=== PATIENT | female | born 1970 | race Caucasian/White ===

== ENCOUNTER 2020-09-30 16:01 | Outpatient (REF) | payer BC, SELFPAY ==
[2020-10-03 13:37] LABS: Immunoglobulin A 217 mg/dL (47-310)
[2020-10-03 22:37] LABS: Transglutaminase Ab IgG 1 U/mL; Transglutaminase IgA 1 U/mL
[2020-10-04 13:32] LABS: Gliadin Deamidated IgA Ab 4 Units; Gliadin Deamidated IgG Ab 2 Units
[2020-10-07 17:47] LABS: Endomysial IgA Antibody Negative (Negative)
== END 2020-09-30 16:02 | disposition home or self-care (01) ==
LOC: HO.LAB 16:01
PROVIDERS: PCP Internal Medicine; Visit Provider Internal Medicine
DX: D50.9 Iron deficiency anemia, unspecified (principal)
CPT/HCPCS: 36415; 82784; 83516; 86255; 86256

== ENCOUNTER 2020-10-01 07:24 | Outpatient (REF) | payer BC, SELFPAY | END 2020-10-01 07:25 | disposition home or self-care (01) | LOC: HO.LAB 07:24 | PROVIDERS: Visit Provider Internal Medicine | DX: Z20.822 Contact with and (suspected) exposure to COVID-19 (principal) | CPT/HCPCS: 36415; C9803; U0003; U0005 ==

== ENCOUNTER 2020-10-12 15:29 | Outpatient (REF) | payer BC, SELFPAY | END 2020-10-12 15:30 | disposition home or self-care (01) | LOC: HO.LAB 15:29 | PROVIDERS: PCP Internal Medicine; Visit Provider Internal Medicine | DX: Z20.822 Contact with and (suspected) exposure to COVID-19 (principal) | CPT/HCPCS: 36415; C9803; U0003; U0005 ==

== ENCOUNTER 2020-10-26 07:10 | Day surgery (SDC) | payer BC, SELFPAY ==
[2020-10-20 18:04] VITALS: BMI 32.1
--- NOTE | 2020-10-25 08:32 | P.CONAN_ITS ---
Documented by User: Jessenia Lomas 10/25/20 08:32 HPI - Anesthesia Eval Consult details Narrative: 50yo F for Upper Endoscopy with Balloon Dilitation [facility] Past Medical History Medical History Anemia GERD (gastroesophageal reflux disease) HTN (hypertension) Sleep apnea Vomiting and diarrhea Surgical History Surgical History H/O: History of breast augmentation (~2010) Social History Social History Smoking Status: Never smoker Second Hand Smoke Exposure: No Use of substances other than those prescribed or required for medical reasons: No Advance Directives: No Advance Directives Information Provided: No Advance Directives on File: No Recently lost weight without trying: No Meds Allergies Allergy/AdvReac Type Severity Reaction Status Date / Time No Known Allergies Allergy Verified 10/26/20 07:36 [No Known Allergies*] Home Medications Medication Instructions Recorded Confirmed Last Taken Type hydrochlorothiazide 25 mg PO DAILY 10/20/20 10/20/20 Unknown History metoprolol tartrate 25 mg PO DAILY 10/20/20 10/26/20 10/26/20 07:00 History sertraline 50 mg PO DAILY 10/20/20 10/20/20 Unknown History zolpidem [Ambien] 5 mg PO BEDTIME PRN 10/20/20 10/20/20 Unknown History Exam Exam Date and Time: October 25, 2020 0832 Height,Weight and Vital Signs: Height 5 ft 1 in Weight 77.111 kg Assessment and Plan Assessment Anesthesia Assessment: Chart Reviewed Documented by User: Marisa Osorio 10/26/20 09:19 [facility] Past Medical History Medical History Anemia GERD (gastroesophageal reflux disease) HTN (hypertension) Sleep apnea Vomiting and diarrhea Surgical History Surgical History Social History Social History Smoking Status: Never smoker Second Hand Smoke Exposure: No Use of substances other than those prescribed or required for medical reasons: No Advance Directives: No Advance Directives Information Provided: No Advance Directives on File: No Recently lost weight without trying: No Meds Allergies Allergy/AdvReac Type Severity Reaction Status Date / Time No Known Allergies Allergy Verified 10/26/20 07:36 [No Known Allergies*] Home Medications Medication Instructions Recorded Confirmed Last Taken Type hydrochlorothiazide 25 mg PO DAILY 10/20/20 10/20/20 Unknown History metoprolol tartrate 25 mg PO DAILY 10/20/20 10/26/20 10/26/20 07:00 History sertraline 50 mg PO DAILY 10/20/20 10/20/20 Unknown History zolpidem [Ambien] 5 mg PO BEDTIME PRN 10/20/20 10/20/20 Unknown History Exam Airway Mallampati Class: II TM Dist: >3cm Neck ROM: Full Loose/Missing/Broken Teeth: No Heart: RRR Lungs: CTA Assessment and Plan Final Anesthetic Review NPO: Yes ASA Class: II Final Preanesthetic Review: Meds/Allgs Chart Reviewed, Consent Obtained/Reviewed and Anes Risks/Benef Reviewed Patient Risk: Low Procedure Risk: Intermediate Anesthetic Plan Anesthetic Plan: MAC: Disposition: Standard PACU
[2020-10-26 07:40] VITALS: BP 164/97; PULSE 94; RESP 16; TEMP 36.5; O2SAT 98
[2020-10-26 07:41] LABS: UPreg QC Valid YES; Urine Pregnancy NEGATIVE (NEGATIVE)
[2020-10-26] MEDS: Lactated Ringers 1,000 ML 100 ML IVCONT (07:45)
[2020-10-26 09:07] VITALS: BP 96/66; PULSE 82; RESP 17; TEMP 36.3; O2SAT 100
--- NOTE | 2020-10-26 09:12 | PM.OP ---
Brief Operative Note Date of Service: 10/26/20 Pre-op diagnosis: GERD, Dysphagia Post-op diagnosis: other (Hiatal hernia, R/O EOE) Procedure: EGD with Balloon Dilation and biopsies Surgeon: Zaid Clark Anesthesia: MAC Estimated blood loss (mL): 3.0 Pathology: other (A. EG Junction at 36cm B. Esophagus at 25cm) Condition: stable Disposition: PACU
[2020-10-26 09:22] VITALS: BP 112/71; PULSE 82; RESP 17; TEMP 36.3; O2SAT 98
--- NOTE | 2020-10-26 09:46 | OP_ITS ---
SURGEON: Zaid Clark MD INDICATIONS: The patient presents for evaluation of gastroesophageal reflux and dysphagia. Full consent has been obtained from her for this, including risks of bleeding and perforation. PREOPERATIVE DIAGNOSIS: POSTOPERATIVE DIAGNOSIS: PROCEDURE PERFORMED: Esophagogastroduodenoscopy with biopsies and balloon dilation. ESTIMATED BLOOD LOSS: COMPLICATIONS: ANESTHESIA: Monitored anesthesia care. ASSISTANTS: SPECIMENS: PREOPERATIVE DIAGNOSES: Gastroesophageal reflux and dysphagia. POSTOPERATIVE DIAGNOSES: Gastroesophageal reflux, dysphagia, hiatal hernia, rule out eosinophilic esophagitis. DESCRIPTION OF PROCEDURE: The patient was placed in the left lateral decubitus position. The Olympus video gastroscope was passed in the posterior oropharynx and upper esophagus under direct vision. The scope was passed slowly into the distal esophagus. The gastroesophageal junction appeared at 36 cm. There was a very minimal irregularity, but no evidence of esophagitis nor Camargo's esophagus. There was no sign of any stricture. The scope was easily entered into the stomach. There was a small hiatal hernia. The scope was advanced to the pylorus and duodenum was cannulated to the descending portion. The duodenum including the bulb appeared normal without mass or ulceration. The scope was withdrawn back into the stomach. The gastric antrum and body appeared normal with good peristalsis. The scope was retroflexed visualizing the proximal stomach carefully, which appeared normal, without any sign of mass or ulceration. Scope was straightened out. The scope was withdrawn back into the esophagus. I did use a [employer] incremental balloon to dilate the gastroesophageal junction from 18 mm to 19 mm to 20 mm at the recommended pressure for between 30 and 60 seconds each. Post dilation, there was no appreciable heme noted. I did obtain biopsies at the EG junction. The esophagus appeared normal otherwise without any sign of proximal esophageal rings nor mucosal abnormalities. Biopsies were obtained at 25 cm. The scope was withdrawn from the patient. She has tolerated the procedure well and was returned to the recovery area in stable condition. IMPRESSION: 1. Small hiatal hernia, gastroesophageal reflux. 2. Rule out eosinophilic esophagitis. PLAN: The results of biopsies will be checked. I shall start her on omeprazole 20 mg daily to see if that gives her any symptomatic relief of her reflux and dysphagia. She was advised to see me in 2 to 3 months for a followup visit. She was advised to continue iron for her anemia. Her most recent colonoscopy in 2016 was unremarkable. MD CALI Girard/GRAHAM / [id number]
== END 2020-10-26 09:48 | disposition home or self-care (01) ==
PROVIDERS: Nurse Practitioner; PCP Internal Medicine; Visit Provider Internal Medicine
PROC: (CPT 43249; principal; 2020-10-26 08:20)
DX: K21.00 Gastro-esophageal reflux disease with esophagitis, without bleeding (principal); K44.9 Diaphragmatic hernia without obstruction or gangrene; I10 Essential (primary) hypertension; D64.9 Anemia, unspecified; Z79.899 Other long term (current) drug therapy
CPT/HCPCS: 43249; 43239; 81025; 88305; C1726

== ENCOUNTER 2021-02-17 13:42 | Outpatient (REF) | payer OTHER, SELFPAY | END 2021-02-17 13:43 | disposition home or self-care (01) | LOC: HO.LAB 13:42 | PROVIDERS: PCP Internal Medicine; Visit Provider Internal Medicine | DX: Z20.822 Contact with and (suspected) exposure to COVID-19 (principal) | CPT/HCPCS: C9803; U0003; U0005 ==

== ENCOUNTER 2021-03-11 23:14 | Emergency (ER) | payer OTHER, SELFPAY ==
[2021-03-12 00:32] VITALS: BP 162/92; PULSE 85; RESP 18; TEMP 36.9; O2SAT 100; BMI 33.0
--- NOTE | 2021-03-12 00:59 | ED.SKABFB ---
HPI - Skin/Abscess/Foreign Bdy General Chief complaint: Skin/Abscess/Foreign Body Stated complaint: Bite by unknown bug on sat Time Seen by Provider: 03/12/21 00:17 Source: patient Mode of arrival: ambulatory Limitations: no limitations History of Present Illness HPI narrative: pulled a stinger out when she was bit, no prior known reactions first time being stung never saw the insect. MD complaint: insect bite/sting Onset (ago): day(s) (2) Location: LUE Severity: moderate Quality: pruritic Pain Consistency: constant Exacerbating factors: none Context: none Associated symptoms: denies other symptoms Treatments prior to arrival: OTC topical medication Related Data Home Medications Medication Instructions Recorded Confirmed hydrochlorothiazide 25 mg PO DAILY 10/20/20 10/20/20 metoprolol tartrate 25 mg PO DAILY 10/20/20 10/26/20 sertraline 50 mg PO DAILY 10/20/20 10/20/20 zolpidem [Ambien] 5 mg PO BEDTIME PRN 10/20/20 10/20/20 Previous Rx's Medication Instructions Recorded epinephrine 0.3 mg IM Q10M PRN #2 ea 03/12/21 prednisone 60 mg PO DAILY 4 Days #12 tab 03/12/21 Allergies Allergy/AdvReac Type Severity Reaction Status Date / Time No Known Allergies Allergy Verified 10/26/20 07:36 [No Known Allergies*] Review of Systems Review of Systems: Constitutional : No Fever, No Chills ENT/Mouth : no oral swelling, No Hoarseness, No Swallowing Difficulty Eyes: No Eye Pain, No Swelling, No Redness Cardiovascular : No Chest Pain, No SOB Respiratory : No Cough, No Sputum, No Wheezing, No Smoke Exposure, No Dyspnea Gastrointestinal : No Nausea, No Vomiting, No Diarrhea, No abdominal Pain Genitourinary : No Dysuria, No Urinary Frequency, No Hematuria Musculoskeletal : No joint pain, No Myalgias, No Joint Swelling Skin : No Skin Lesions, positive rash Neuro : No Weakness, No Numbness, No Headache Psych : No Anxiety/Panic, No Depression Heme/Lymph: No Bruising, No Lymphadenopathy Endocrine : No Polyuria, No Polydipsia PMFSH Past Medical History Attestation statement: The following information was validated with the patient. Medical History Anemia GERD (gastroesophageal reflux disease) HTN (hypertension) Sleep apnea Vomiting and diarrhea Surgical History H/O: History of breast augmentation (~2010) Social History Social History (Updated 03/12/21 @ 01:08 by Hortencia Jones DO) Patient Tobacco Use Status: Never used Tobacco Second Hand Smoke Exposure: No Advance Directives: No Advance Directives Information Provided: Yes Patient : No Physical Exam Vital Signs: Vital Signs: Last Vital Signs Temp 98.4 F 03/12/21 00:32 Pulse 85 03/12/21 00:32 Resp 18 03/12/21 00:32 BP 162/92 H 03/12/21 00:32 Pulse Ox 100 03/12/21 00:32 Body Mass Index 33.0 Appearance: Alert. Oriented X3. No acute distress. Eyes: Pupils equal, round and reactive to light. ENT: Pharynx normal. Neck: Normal inspection. Neck supple. CVS: Normal heart rate and rhythm. Pulses normal. Respiratory: No respiratory distress. Breath sounds normal. Abdomen: Soft and nontender. Skin: Skin warm and dry. Normal skin color. Normal skin turgor. Extremities: No lower extremity edema. L upper arm with bite area noted, no fluctuance, area is pink and swollen but flat and not tense, some swelling into the arm, distal NV intact, no warmth, no erythema just light pink area Neuro: Oriented X 3. No motor deficit. No sensory deficit. MDM - Skin/Abscess/Foreign Bdy MDM Narrative Medical decision making narrative: 50 yo female with recent bite - had a stinger in it L upper arm now with sig itching and swelling with large localized reaction - no signs of infection at this time will start on steroids, given the degree of localized reaction will also dose with IM epi, given precautions to return. NV intact distally Discharge Plan Discharge Clinical Impression: Insect bite Qualifiers: Encounter type: initial encounter Site of insect bite: upper arm Laterality: left Qualified Code(s): S40.862A - Insect bite (nonvenomous) of left upper arm, initial encounter Allergic reaction Qualifiers: Encounter type: initial encounter Qualified Code(s): T78.40XA - Allergy, unspecified, initial encounter Patient Disposition: Home, Self-Care Instructions: Insect Bite or Sting (ED), General Allergic Reaction (ED) Additional Instructions: return to ED for any worsening symptoms or concerns Prescriptions: New prednisone 20 mg tablet 60 mg PO DAILY 4 Days Qty: 12 RF: 0 epinephrine 0.3 mg/0.3 mL auto-injector 0.3 mg IM Q10M PRN (Reason: anaphylaxis) Qty: 2 RF: 0 No Action hydrochlorothiazide 25 mg Tablet 25 mg PO DAILY RF: 0 zolpidem [Ambien] 5 mg Tablet 5 mg PO BEDTIME PRN (Reason: Insomnia) RF: 0 sertraline 50 mg Tablet 50 mg PO DAILY RF: 0 metoprolol tartrate 25 mg Tablet 25 mg PO DAILY RF: 0
[2021-03-12] MEDS: predniSONE 20 MG TABLET 60 MG PO (01:09)
[2021-03-12] MEDS: Cyclobenzaprine HCl 10 MG TABLET PO (01:09)
== END 2021-03-12 01:13 | disposition home or self-care (01) ==
LOC: HO.ED 03-12 01:09
PROVIDERS: Emergency Provider Emergency Medicine
DX: T63.481A Toxic effect of venom of other arthropod, accidental (unintentional), initial encounter (principal); R22.32 Localized swelling, mass and lump, left upper limb; L29.9 Pruritus, unspecified; Y92.9 Unspecified place or not applicable; I10 Essential (primary) hypertension
CPT/HCPCS: 99283

== ENCOUNTER → 2021-04-13 10:59 | Outpatient (BNVA) | payer OTHER, SELFPAY | PROVIDERS: Referring Provider Internal Medicine; Visit Provider Physician Assistant ==

== ENCOUNTER 2023-01-11 09:19 | Day surgery (SDC) | payer OTHER, SELFPAY ==
--- NOTE | 2023-01-10 09:31 | P.CONAN_ITS ---
Documented by User: Jessenia Lomas NP 01/10/23 09:32 HPI - Anesthesia Eval Consult details Narrative: 52yo F for Upper Endoscopy and Colonoscopy [facility] Past Medical History Medical History (Updated 01/09/23 @ 14:08 by Jessenia Lomas NP) Anemia Anxiety and depression GERD (gastroesophageal reflux disease) HTN (hypertension) IBS (irritable bowel syndrome) Sleep apnea Vomiting and diarrhea Surgical History Surgical History (Updated 01/09/23 @ 14:08 by Jessenia Lomas NP) H/O colonoscopy H/O esophagogastroduodenoscopy H/O: History of breast augmentation (~2010) Social History Social History (Updated 03/12/21 @ 01:08 by Matilde Jones DO) Patient Tobacco Use Status: Never used Tobacco Second Hand Smoke Exposure: No Advance Directives: No Advance Directives Information Provided: Yes Meds Allergies Allergy/AdvReac Type Severity Reaction Status Date / Time No Known Allergies Allergy Verified 10/26/20 07:36 [No Known Allergies*] Home Medications Medication Instructions Recorded Confirmed Last Taken Type hydrochlorothiazide 25 mg tablet 25 mg PO DAILY 10/20/20 10/20/20 Unknown History metoprolol tartrate 25 mg tablet 25 mg PO DAILY 10/20/20 10/26/20 10/26/20 07:00 History sertraline 50 mg tablet 50 mg PO DAILY 10/20/20 10/20/20 Unknown History zolpidem 5 mg tablet (Ambien) 5 mg PO BEDTIME PRN Insomnia 10/20/20 10/20/20 Unknown History famotidine 20 mg tablet 20 mg PO DAILY 01/09/23 01/09/23 Unknown History Exam Exam Date and Time: January 10, 202331 Assessment and Plan Assessment Anesthesia Assessment: Chart Reviewed Documented by User: Irma San MD 01/11/23 09:58 [facility] Past Medical History Medical History (Updated 01/09/23 @ 14:08 by Jessenia Lomas NP) Anemia Anxiety and depression GERD (gastroesophageal reflux disease) HTN (hypertension) IBS (irritable bowel syndrome) Sleep apnea Vomiting and diarrhea Family History Family history of problems with anesthesia: No Surgical History Surgical History (Updated 01/09/23 @ 14:08 by Jessenia Lomas NP) H/O colonoscopy H/O esophagogastroduodenoscopy H/O: History of breast augmentation (~2010) History of Problems with Anesthesia: No Social History Social History (Updated 03/12/21 @ 01:08 by Matilde Jones DO) Patient Tobacco Use Status: Never used Tobacco Second Hand Smoke Exposure: No Advance Directives: No Advance Directives Information Provided: Yes Meds Allergies Allergy/AdvReac Type Severity Reaction Status Date / Time No Known Allergies Allergy Verified 10/26/20 07:36 [No Known Allergies*] Home Medications Medication Instructions Recorded Confirmed Last Taken Type hydrochlorothiazide 25 mg tablet 25 mg PO DAILY 10/20/20 10/20/20 Unknown History metoprolol tartrate 25 mg tablet 25 mg PO DAILY 10/20/20 10/26/20 10/26/20 07:00 History sertraline 50 mg tablet 50 mg PO DAILY 10/20/20 10/20/20 Unknown History zolpidem 5 mg tablet (Ambien) 5 mg PO BEDTIME PRN Insomnia 10/20/20 10/20/20 Unknown History famotidine 20 mg tablet 20 mg PO DAILY 01/09/23 01/09/23 Unknown History Exam Airway Mallampati Class: II TM Dist: >3cm Neck ROM: Full Loose/Missing/Broken Teeth: No Heart: rr Lungs: cta Assessment and Plan Final Anesthetic Review Family History of Problems with Anesthesia: No History of Problems with Anesthesia: No NPO: Yes ASA Class: II Final Preanesthetic Review: Meds/Allgs Chart Reviewed, Consent Obtained/Reviewed and Anes Risks/Benef Reviewed Procedure Risk: Low Anesthetic Plan Anesthetic Plan: MAC: Disposition: Standard PACU
[2023-01-11 10:21] VITALS: BP 114/63; PULSE 74; RESP 18; TEMP 36.3; O2SAT 97; BMI 34.1
[2023-01-11 11:40] VITALS: BP 125/75; PULSE 87; RESP 16; TEMP 36.3; O2SAT 98
--- NOTE | 2023-01-11 11:41 | PM.OP ---
Brief Operative Note Date of Service: 01/11/23 Pre-op diagnosis: GERD, Screening Post-op diagnosis: other (Reflux esophagitis, Hiatal hernia, Diverticulosis) Procedure: EGD with biopsies, Colonoscopy to the cecum and TI Surgeon: Zaid Clark Anesthesia: MAC Was an Classroom Monitor used for this Procedure?: No Estimated blood loss (mL): 2.0 Pathology: other (A. EG Junction at 35cm) Condition: stable Disposition: PACU
[2023-01-11 11:55] VITALS: BP 135/79; PULSE 87; RESP 16; TEMP 36.8; O2SAT 100
[2023-01-11 12:06] VITALS: BP 117/64; PULSE 73; RESP 18; TEMP 36.8; O2SAT 100
--- NOTE | 2023-01-11 12:45 | OP_ITS ---
DATE OF SERVICE: 01/11/2023 SURGEON: Zaid Clark MD INDICATIONS: The patient presents for evaluation of gastroesophageal reflux, anemia, colorectal cancer screening, family history of colon cancer. PREOPERATIVE DIAGNOSIS: POSTOPERATIVE DIAGNOSIS: PROCEDURE PERFORMED: Esophagogastroduodenoscopy with biopsies and colonoscopy to the cecum and terminal ileum. ESTIMATED BLOOD LOSS: COMPLICATIONS: ANESTHESIA: Monitored anesthesia care. ASSISTANTS: SPECIMENS: POSTOPERATIVE DIAGNOSES: The patient presents for evaluation of gastroesophageal reflux, anemia, colorectal cancer screening, family history of colon cancer, hiatal hernia, reflux esophagitis, mild diverticulosis, internal hemorrhoids. DESCRIPTION OF PROCEDURE: The patient was placed in the left lateral decubitus position. The Olympus video gastroscope was passed in the posterior oropharynx and upper esophagus under direct vision. The scope was passed slowly to the distal esophagus. The gastroesophageal junction appeared at 35 cm. There was evidence of some edema, erythema, and minimal changes of reflux esophagitis. There was no ulceration, stricture, Camargo's esophagus, nor esophageal ring. The scope easily entered the stomach. There was a small hiatal hernia. The scope was advanced to the pylorus and the duodenum was cannulated to the descending portion. The duodenum including the bulb appeared normal without mass or ulceration. The scope was withdrawn back to the stomach. The gastric antrum and body appeared normal with good peristalsis. The scope was retroflexed visualizing the proximal stomach carefully, which appeared normal, without any sign of mass or ulceration. The scope was straightened and withdrawn back to the esophagus. Biopsies were obtained at the EG junction at 35 cm. Proximal to this, the esophageal mucosa appeared normal. I did not visualize any narrowing nor any other abnormality that required dilation. The scope was withdrawn from the patient. She was turned around for the colonoscopy. The digital rectal exam revealed no abnormalities. The Olympus video pediatric colonoscope was entered into the rectum and advanced easily to the cecum. Once in the cecum, I did identify normal-appearing cecal pouch with appendiceal orifice and a normal-appearing ileocecal valve. The terminal ileum was cannulated and appeared normal. The scope was withdrawn back in the colon. The entire cecum and ileocecal valve appeared normal. The scope was slowly withdrawn assessing all mucosal surfaces carefully. Preparation was excellent. I did not visualize any sign of polyps, colitis, nor angiodysplasia. There was a mild amount of sigmoid diverticulosis. In the rectum, scope was retroflexed visualizing internal hemorrhoids, but no other pathology. The rectal mucosa appeared normal. The scope was straightened and withdrawn from the patient. She tolerated both procedures well and was returned to the recovery area in stable condition. IMPRESSION: 1. Hiatal hernia, reflux esophagitis. 2. Diverticulosis. 3. Internal hemorrhoids. PLAN: The results of the biopsies will be checked. She has been advised to continue her current regimen of omeprazole 40 mg daily and famotidine as needed. I would recommend a repeat colonoscopy in 5 years for further screening given the family history of colon cancer. She was advised not to use any aspirin nor NSAIDs for 1 week. She will continue follow up with her primary care physician and [employer] physician in regard to the anemia and heavy menses. She will otherwise see me in the interim on a p.r.n. basis. MD CALI Girard/GRAHAM / [id number] MTDD
== END 2023-01-11 12:48 | disposition home or self-care (01) ==
PROVIDERS: PCP Internal Medicine; Visit Provider Internal Medicine
PROC: (CPT 45378; principal; 2023-01-11 10:20)
DX: Z12.11 Encounter for screening for malignant neoplasm of colon (principal); Z80.0 Family history of malignant neoplasm of digestive organs; K57.30 Diverticulosis of large intestine without perforation or abscess without bleeding; K64.8 Other hemorrhoids; K58.9 Irritable bowel syndrome, unspecified; R13.10 Dysphagia, unspecified; K21.00 Gastro-esophageal reflux disease with esophagitis, without bleeding; K44.9 Diaphragmatic hernia without obstruction or gangrene; D50.9 Iron deficiency anemia, unspecified; I10 Essential (primary) hypertension; F41.8 Other specified anxiety disorders; N92.0 Excessive and frequent menstruation with regular cycle; Z79.899 Other long term (current) drug therapy
CPT/HCPCS: 45378; 43239; 88305